=== PATIENT | female | born 1980 | race Caucasian/White ===

== ENCOUNTER 2017-04-04 16:02 | Emergency (ER) | payer BC ==
[~2017-04-04] VITALS: Ht 154.9 cm; Wt 65.8 kg
--- NOTE | 2017-04-04 16:13 | NUR ---
PT AMBULATORY TO ER BED 10. PRESENTS W/ GENERALIZED HIVES WORST TO BLE X 2 DAYS S/P EATING SUSHI. DENIES SOB. PT STATES WORST TODAY. STATES BEEN TAKING PO BENADRYL. NO RELIEF.
--- NOTE | 2017-04-04 16:18 | NUR ---
RONNIE CRAFT AT BEDSIDE FOR EVAL.
[2017-04-04] MEDS ORDERED: methylPREDNISolone SOD SUCC 125 MG/2ML VIAL ONE (16:22)
[2017-04-04] MEDS ORDERED: FAMOTIDINE/PF INJ 20 MG/2 ML VIAL IV ONE ×2 (16:22→16:30)
[2017-04-04] MEDS ORDERED: diphenhydrAMINE HCL 50 MG/ML VIAL ONE (16:22)
[2017-04-04] MEDS ORDERED: methylPREDNISolone SOD SUCC 125 MG/2ML VIAL IV ONE (16:30)
[2017-04-04] MEDS ORDERED: diphenhydrAMINE HCL 50 MG/ML VIAL IV ONE (16:30)
[2017-04-04 17:15] VITALS: BP 108/62
--- NOTE | 2017-04-04 17:15 | NUR ---
NO SOB. PT STATES LESS ITCHY. Patient discharged to home in stable condition. Written and verbal after care instructions given. Patient verbalizes understanding of instruction.IV removed. Catheter intact and site benign. Pressure and 4x4 applied to site. No bleeding noted.
== END 2017-04-04 17:16 | disposition home or self-care (01) ==
LOC: ER 16:08
DX: L50.9 Urticaria, unspecified (principal); F17.200 Nicotine dependence, unspecified, uncomplicated
CPT/HCPCS: 96374; 96375; 99284; A4606; J1200; J2930; J3490; J7050; Z7610

== ENCOUNTER 2017-07-01 22:09 | Emergency (ER) | payer BC ==
[~2017-07-01] VITALS: Ht 157.5 cm; Wt 64.4 kg
--- NOTE | 2017-07-02 00:09 | NUR ---
pt came from home with c/o idepigastric pain x 24 hours, a/o x 4, breathing even/unlabored, abdomen soft/nondistended states "deniz in my stomach, it started hurting after i lifted my son"
[2017-07-02] MEDS ORDERED: ONDANSETRON HCL/PF 4 MG/2 ML VIAL ONE (00:22)
[2017-07-02] MEDS ORDERED: ONDANSETRON HCL/PF 4 MG/2 ML VIAL IVP ONE (00:30)
[2017-07-02] MEDS ORDERED: IV NS 0.9% 1,000 ML BAG IV ONE (00:30)
[2017-07-02 00:45] LABS: BASOPHILS # (AUTO) 0.1 /CMM (0.0-0.2); BASOPHILS % (AUTO) 0.7 % (0.0-2.0); EOSINOPHILS # (AUTO) 0.1 /CMM (0.0-0.7); EOSINOPHILS % (AUTO) 1.2 % (0.0-6.0); HEMATOCRIT 41 % (33-45); HEMOGLOBIN 13.8 g/dL (11.5-14.8); LYMPHOCYTES # (AUTO) 2.6 /CMM (0.8-4.8); LYMPHOCYTES % (AUTO) 25.2 % (20.0-44.0); MEAN CORPUSCULAR HEMOGLOBIN 28 PG (26.0-33.0); MEAN CORPUSCULAR HGB CONC 34 g/dl (31.0-36.0); MEAN CORPUSCULAR VOLUME 83 fL (82-100); MONOCYTES # (AUTO) 0.6 /CMM (0.1-1.30); MONOCYTES % (AUTO) 6.1 % (2.0-12.0); NEUTROPHILS # (AUTO) 6.8 /CMM (1.8-8.9); NEUTROPHILS % (AUTO) 66.8 % (43.0-81.0); PLATELET COUNT (AUTO) 286 /CMM (150-450); RDW COEFFICIENT OF VARIATION 13.7 (11.5-15.0); RED BLOOD CELL COUNT(AUTO) 4.91 MIL/uL (4.0-5.2); WHITE BLOOD COUNT (AUTO) 10.2 K/uL (4.3-11.0)
[2017-07-02 00:53] LABS: APPEARANCE,URINE CLEAR (CLEAR); BILIRUBIN,URINE NEGATIVE (NEGATIVE); BLOOD, URINE TRACE-INTA Ery/uL (NEGATIVE); COLOR,URINE YELLOW (YELLOW); KETONES,URINE NEGATIVE (NEGATIVE); LEUKOCYTE ESTERASE ,URINE NEGATIVE (NEGATIVE); NITRITE, URINE NEGATIVE (NEGATIVE); PH,URINE 6.5 (5.0-8.0); PROTEIN,URINE NEGATIVE (NEGATIVE); UGLUCOSE NEGATIVE (NEGATIVE); UROBILINOGEN,URINE 0.2 EU/dL (0.2)
[2017-07-02 00:56] LABS: CALCIUM, SERUM 9.5 mg/dL (8.5-10.1); CREATININE 0.9 mg/dL (0.6-1.3); POTASSIUM 3.7 mmol/L (3.5-5.1)
[2017-07-02 01:00] LABS: INR 0.99 (0.87-1.13); PROTHROMBIN TIME 10.3 SECS (9.5-12.7)
[2017-07-02 01:01] LABS: BACTERIA,URINE Few /HPF (None Seen); SQUAMOUS EPITHELIAL CELL,UR Moderate /HPF (None Seen); WBC,URINE 0-2 /HPF (0-3)
[2017-07-02] MEDS ORDERED: CT SWABBABLE VALVE TRANS SET 1 EA INFUS.SET MC ONE (01:10)
[2017-07-02] MEDS ORDERED: IOHEXOL-300 100 ML VIAL IV ONE (01:10)
[2017-07-02] MEDS ORDERED: IV NS 0.9% 250 ML IV ONE (01:10)
[2017-07-02 02:30] VITALS: BP 110/70
== END 2017-07-02 02:31 | disposition home or self-care (01) ==
LOC: ER 22:09
DX: S30.1XXA Contusion of abdominal wall, initial encounter (principal); F17.200 Nicotine dependence, unspecified, uncomplicated; X58.XXXA Exposure to other specified factors, initial encounter; Y93.89 Activity, other specified; Y92.89 Other specified places as the place of occurrence of the external cause; Y99.8 Other external cause status
CPT/HCPCS: 36415; 74160; 80048; 81001; 84703; 85025; 85730; 96361; 96374; 99285; A4606; J2405; J7050; Q9967; Z7610 ×2; 81000-TC

== ENCOUNTER 2019-07-30 20:59 | Emergency (ER) | payer BC, MEDICAID ==
[~2019-07-30] VITALS: Ht 157.5 cm; Wt 86.2 kg
[2019-07-30 21:25] VITALS: BP 113/89
--- NOTE | 2019-07-30 21:25 | NUR ---
PT [id number] FROM HOME C/O HEADACHE AND VOMITING, 33 WKS . PT AOX4. NAD NOTED. RESP EVEN AND UNLABORED. PT DENIES PAIN AT THIS TIME. PT ON MONITOR IN BED 4 WITH FAMILY AT BEDSIDE. WILL CONTINUE TO MONITOR.
[2019-07-30] MEDS ORDERED: METOCLOPRAMIDE HCL 10 MG/2 ML VIAL ONE (21:47)
[2019-07-30] MEDS ORDERED: METOCLOPRAMIDE HCL 10 MG/2 ML VIAL IV ONE (22:00)
[2019-07-30] MEDS ORDERED: IV NS 0.9% 1,000 ML BAG IV ONE (22:30)
[2019-07-30] MEDS ORDERED: ACETAMINOPHEN 325 MG TABLET PO ONE (22:30)
[2019-07-30] MEDS ORDERED: ACETAMINOPHEN 325 MG TABLET ONE (22:33)
--- NOTE | 2019-07-30 23:19 | NUR ---
IV removed. Catheter intact and site benign. Pressure and 4x4 applied to site. No bleeding noted.Patient discharged to home in stable condition. Written and verbal after care instructions given. Patient verbalizes understanding of instruction.
[2019-07-30] MEDS ORDERED: PANTOPRAZOLE 40 MG TABLET.DR PO ONE (23:30)
== END 2019-07-30 23:23 | disposition home or self-care (01) ==
LOC: ER 21:00
DX: R11.2 Nausea with vomiting, unspecified (principal); R51 Headache; F17.200 Nicotine dependence, unspecified, uncomplicated
CPT/HCPCS: 96361; 96374; 99283; A4216; J2765; J7030